=== PATIENT | female | born 1940 | race Caucasian/White ===

== ENCOUNTER → 2016-04-26 | Outpatient (CLI) | payer OTHER ==
--- NOTE | 2016-04-26 10:38 | DX ---
Right Shoulder, Three Views History: Fall onto shoulder yesterday. Comparison: Bilateral acromioclavicular joints with weights the same day. Findings: No fracture is identified. Alignment is normal. There is mild degenerative change of the gl enohumeral joint and moderate acromioclavicular arthrosis. The acromioclavicular and coracoclavicular relationships are normal. Granuloma is noted in the right upper lobe. Impressions 1. No acute osseous findings. 2. Mild-moderate degenerative change.
--- NOTE | 2016-04-26 10:41 | DX ---
Bilateral Acromioclavicular Joints With And Without Weights History: Fall with right shoulder pain. Comparison: Right shoulder same day at 0954 hours. Findings: No fracture is identified. The acromioclavicular and coracoclavicular relationships are nor mal with and without weights. Moderate right and mild left acromioclavicular arthrosis is present. Mi ld degenerative change is present at the glenohumeral joints. Right upper lobe granuloma is noted. Impression: No acute osseous findings.
== END ==
LOC: BMCIMAGING 09:53
PROVIDERS: ATTEND Family Medicine
DX: M25.511 Pain in right shoulder (principal)

== ENCOUNTER → 2017-05-22 | Outpatient (CLI) | payer OTHER | LOC: FIMAGING 09:07 | PROVIDERS: ATTEND Family Medicine | DX: Z12.31 Encounter for screening mammogram for malignant neoplasm of breast (principal) ==

== ENCOUNTER 2018-06-27 09:21 | Emergency (ER) | payer OTHER ==
--- NOTE | 2018-06-27 09:51 | EDPHY ---
General Time Seen by Provider: 06/27/18 09:33 Narrative: CLINICAL IMPRESSION: Left ureterolithiasis with left hydronephrosis, Acute renal insufficiency ASSESSMENT/PLAN: 77 yo female presents to the ER with 2-3 days of worsening left flank pain in the setting of microscopic hematuria x 4 months and urology f/u [address] tomorrow. She is afebrile, no reported hx of fevers and VSS. Abdomen soft without focal peritoneal findings. Labs show renal insufficiency with creatinine of 1.7, priors being 1.2 in 2017, 1.1 in 2016. Mild leukocytosis of 11. Urine studies pending. CT shows a large 9x9x13 mm left ureterolithiasis with moderate left hydronephrosis. I discussed pt's workup with her primary urologist, Dr. Coello at [facility] who will come to ER and plan to take the patient to the OR for stent placement today. Patient NPO since 6am and comfortable with this plan. Stable in ER prior to transfer to OR. DIFFERENTIAL DX: [Abdominal pain includes but not limited to urinary tract infection, pyelonephritis, infected ureterolithiasis or nephrolithiasis infection, acute diverticulitis, small-bowel obstruction, constipation, renal mass, renal artery aneurysm] [ED PROCEDURES:] [See lab and/or imaging results below ] ED COURSE: 9:45 a.m.: Patient seen assessed by myself. Vital signs stable. No acute distress, nontoxic-appearing. Plan for IV, fluid bolus, IV analgesic, labs, CT scan 10:20 a.m.: Labs reviewed by myself. Patient noted to have renal insufficiency with creatinine 1.7 today. Comparison show creatinine 1.2 in January 2018, 1.1 in January of 2017. Mild leukocytosis noted. CT results pending. 11:45 a.m.: CT results discussed Dr. Diaz. Patient has a 9 x 9 x 13 mm left ureteral stone approximately 8-9 cm upstream from the bladder with moderate left hydronephrosis. No evidence of malignancy. Page to [facility] were patient is an established patient. Discussed CT results with patient's urologist at [facility]. She will come to ER and plan to take patient to OR for stent placement tonight. Patient to go home in the morning. Urine studies pending. Patient comfortable with this plan and has been NPO since 6am. CHIEF COMPLAINT: [Left flank pain ] HPI: 77-year-old female with past medical history of kidney stones presents to the emergency department with 4 months of hematuria and approximately 3 days of progressively worsening left flank pain. Patient reports she saw her primary care doctor who detected the hematuria on a routine urine study. She then saw Dr. Kendrick 8 days ago who ordered a CT scan which is scheduled for tomorrow. Patient reports her pain was bad enough this morning that she became nauseous and vomited and decided to come to the ER. She does report a history of kidney stones 6 years ago requiring lithotripsy and stent placement. She has done well since that time. She reports no fever, chills, abdominal pain, dysuria, urgency. She was told in the past that she had abnormal renal function which was attributed to the use of naproxen. She also had a parathyroidectomy and renal functions improved. She has no reported chest pain, shortness of breath, lower extremity pain or loss of sensation or swelling. She tried taking hydrocodone this morning but vomited this. She reports she has diet-controlled diabetes but does not take medication for diabetes. She also has a history of hypertension PAST MEDICAL HISTORY: Hypertension, kidney stones, diet-controlled diabetes, melanoma [See nurse/triage notes for additional history if applicable ] Pertinent Past Surgical History: [ Parathyroidectomy, knee replacement] Family History: None reported Social History: , here with her REVIEW OF SYSTEMS: All other systems negative Constitutional: [No fever, no chills, positive for appetite change.] Cardiovascular: [No chest pain, no palpitations.] Respiratory: [No cough, no shortness of breath.] Gastrointestinal: [No abdominal pain, no vomiting, diarrhea.] Genitourinary: [No hematuria, dysuria, positive for left-sided flank pain, pelvic pain] Musculoskeletal: [No back pain, joint swelling, joint pain, myalgias.] Skin: [No rashes, color change.] Neurological: [No headache, dizziness, weakness.] PHYSICAL EXAM: General Appearance: [Alert, oriented, appropriate, cooperative, NAD, overweight well hydrated, non-toxic appearing, VSS, no hypoxia.] Respiratory: [There are no retractions, lungs are clear to auscultation.] Cardiac: [Regular rate and rhythm, no murmurs or gallops.] Gastrointestinal: [Abdomen is soft, nontender, bowel sounds normal, no masses/ hernia, no rigidity, guarding or focal peritoneal findings. Femoral pulses symmetric bilaterally] Neurological: [ Alert and oriented x 3, CN 2-12 grossly intact Skin: [Warm, dry, no rashes, no nodules on palpation.] Musculoskeletal: [Extremities are symmetrical, full range of motion, no tenderness, deformity, swelling, or erythema. Reproducible left flank pain to palpation] Psychiatric: [Patient is oriented X 3, there is no agitation.] MEDICAL DECISION MAKING: Patient was seen independently. Secondary supervising physician at time of evaluation was [ Dr. Biggs]. Diagnosis: Left ureterolithiasis, acute renal insufficiency New, requires workup Summary: [ See Assessment and Plan for summary of ED visit ] Clinical lab tests: [ ordered / reviewed]. Independent visualization of images, tracing, or specimens: [ Yes / No]. Discussed patient with another provider: [ [facility], radiology] Patient Progress: [ Stable for tranfer to OR with urology]. - Diagnostics Imaging Results: Imaging Impressions Abdomen/Pelvis CT 06/27/18 10:07 Impression: 1. Moderate left hydronephrosis due to 9 x 9 mm calculus in the distal left ureter at the level of the sacral promontory. 2. Bilateral nephrolithiasis. 3. No intra-abdominal mass or lymphadenopathy. 4. Constipation, diverticulosis, and benign left adrenal gland adenoma are unchanged. Findings discussed with Emergency Department physician, Prasad Markham PA-C on June 27, 2018 at 1045 hours. Attention: This CT examination is specifically designed to evaluate patients who are clinically suspected of having acute obstructive uropathy. This examination does not use radiographic contrast, and as such, provides only a limited evaluation of the abdomen, pelvis and retroperitoneum. If there is further clinical suspicion for pathological conditions other than obstructive uropathy, a complete CT evaluation of the abdomen and pelvis utilizing intravenous, oral, and rectal contrast should be considered. - History Smoking Status: Never smoked - Objective Vital Signs: Initial Vital Signs Temperature (C) 36.6 C 06/27/18 09:29 Heart Rate 65 06/27/18 09:29 Respiratory Rate 16 06/27/18 09:29 Blood Pressure 120/84 H 06/27/18 09:29 O2 Sat (%) 93 06/27/18 09:29 O2 Delivery Mode Room Air Allergies/Adverse Reactions: naproxen Allergy (Severe, Verified 06/27/18 09:28) KIDNEY DAMAGE penicillin G Allergy (Verified 06/27/18 09:28) Rash Home Medications: Medication Instructions Recorded Aspirin [Aspirin 81mg (*)] 81 mg PO DAILY 12/06/14 Atorvastatin Calcium [Lipitor 20 20 mg PO HS 12/06/14 mg (*)] FENOFIBRATE 160 mg PO DAILY 12/06/14 Herbals/Supplements -Info Only 1 ea PO DAILY 12/06/14 Lisinopril [Zestril 20 mg (*)] 20 mg PO DAILY 12/06/14 Metoprolol Succinate Xr [Toprol Xl 100 mg PO DAILY 12/06/14 100 mg (*)] Hydrocodone/APAP 5/325 [[place] 2 tab PO Q4 PRN #10 tab 12/08/14 5/325 (*)] Laboratory Results: Laboratory Results 06/27/18 09:47 06/27/18 09:47 06/27/18 06/27/18 06/27/18 12:30 09:47 09:47 WBC 11.50 10^3/uL H 10^3/uL (3.80-9.50) RBC 4.93 10^6/uL 10^6/uL (4.18-5.33) Hgb 15.2 g/dL g/dL (12.6-16.3) Hct 45.2 % % (38.0-47.0) MCV 91.7 fL fL (81.5-99.8) MCH 30.8 pg pg (27.9-34.1) MCHC 33.6 g/dL g/dL (32.4-36.7) RDW 13.5 % % (11.5-15.2) Plt Count 258 10^3/uL 10^3/uL (150-400) MPV 10.6 fL fL (8.7-11.7) Neut % (Auto) 71.8 % % (39.3-74.2) Lymph % (Auto) 16.6 % % (15.0-45.0) [place] % (Auto) 7.9 % % (4.5-13.0) Eos % (Auto) 3.1 % % (0.6-7.6) Baso % (Auto) 0.3 % % (0.3-1.7) Nucleat RBC Rel Count 0.0 % % (0.0-0.2) Absolute Neuts (auto) 8.24 10^3/uL H 10^3/uL (1.70-6.50) Absolute Lymphs (auto) 1.91 10^3/uL 10^3/uL (1.00-3.00) Absolute Monos (auto) 0.91 10^3/uL H 10^3/uL (0.30-0.80) Absolute Eos (auto) 0.36 10^3/uL 10^3/uL (0.03-0.40) Absolute Basos (auto) 0.04 10^3/uL 10^3/uL (0.02-0.10) Absolute Nucleated RBC 0.00 10^3/uL 10^3/uL (0-0.01) Immature Gran % 0.3 % % (0.0-1.1) Immature Gran # 0.04 10^3/uL 10^3/uL (0.00-0.10) Sodium 137 mEq/L mEq/L (135-145) Potassium 4.3 mEq/L mEq/L (3.5-5.2) Chloride 104 mEq/L mEq/L (97-110) Carbon Dioxide 22 mEq/l mEq/l (22-31) Anion Gap 11 mEq/L mEq/L (6-14) BUN 34 mg/dL H mg/dL (7-23) Creatinine 1.7 mg/dL H mg/dL (0.6-1.0) Estimated GFR 29 Glucose 117 mg/dL H mg/dL (70-100) Calcium 10.3 mg/dL mg/dL (8.5-10.4) Urine Color YELLOW Urine Appearance CLEAR Urine pH 5.0 (5.0-7.5) Ur Specific [place] 1.006 (1.002-1.030) Urine Protein NEGATIVE (NEGATIVE) Urine Ketones NEGATIVE (NEGATIVE) Urine Blood 2+ H (NEGATIVE) Urine Nitrate NEGATIVE (NEGATIVE) Urine Bilirubin NEGATIVE (NEGATIVE) Urine Urobilinogen 0.2 EU EU (0.2-1.0) Ur Leukocyte Esterase NEGATIVE (NEGATIVE) Urine RBC 25-50 /hpf H /hpf (0-3) Urine WBC 1-3 /hpf /hpf (0-3) Ur Epithelial Cells TRACE /lpf /lpf (NONE-1+) Urine Bacteria TRACE /hpf H /hpf (NONE SEEN) Urine Mucus TRACE /lpf /lpf (NONE-1+) Urine Glucose NEGATIVE (NEGATIVE) Medications Given: Discontinued Medications Fentanyl (Sublimaze) 50 mcg IVP EDNOW ONE Stop: 06/27/18 10:07 Last Admin: 06/27/18 10:34 Dose: 50 mcg Sodium Chloride (Ns) 1,000 mls @ 0 mls/hr IV EDNOW ONE; Wide Open PRN Reason: Protocol Stop: 06/27/18 10:07 Last Admin: 06/27/18 10:00 Dose: 1,000 mls Ondansetron HCl (Zofran) 4 mg IVP EDNOW ONE Stop: 06/27/18 10:08 Last Admin: 06/27/18 10:34 Dose: 4 mg Departure - Departure Disposition: To OP Cath/Surgery Clinical Impression: Kidney disease Referrals: Izabel Malik MD [Primary Care Provider] - As per Instructions
[2018-06-27 10:03] LABS: PLATELET COUNT 258 10^3/uL (150-400)
[2018-06-27] MEDS ORDERED: NS 1,000 ML IV ONE (10:06)
[2018-06-27] MEDS ORDERED: fentaNYL 100 MCG/2 ML INJ IVP ONE (10:06)
[2018-06-27] MEDS ORDERED: ONDANSETRON 4 MG/2 ML VIAL IVP ONE (10:07)
[2018-06-27] MEDS ORDERED: LIDOCAINE 2% JELLY 20 ML (UROJECT) ONE (12:50)
[2018-06-27] MEDS ORDERED: OPIUM/BELLADONNA ALKALO SUPP PR ONE (12:50)
[2018-06-27] MEDS ORDERED: IOPAMIDOL (ISOVUE-M 300) 15 ML VIAL ONE (12:56)
[2018-06-27] MEDS ORDERED: PROPOFOL 200 MG/20 ML VIAL ONE (13:18)
[2018-06-27] MEDS ORDERED: LIDOCAINE 2% 100 MG/5 ML SYR ONE (13:18)
[2018-06-27] MEDS ORDERED: PHENYLEPHRINE HCL 100 MCG/ML SYR ONE (13:18)
[2018-06-27] MEDS ORDERED: fentaNYL 100 MCG/2 ML INJ ONE (13:18)
[2018-06-27] MEDS ORDERED: DEXAMETHASONE 4 MG/ML VIAL ONE (13:18)
[2018-06-27] MEDS ORDERED: ONDANSETRON 4 MG/2 ML VIAL ONE (13:18)
[2018-06-27] MEDS ORDERED: levOFLOXACIN 500 MG/DEXTROSE 100 ML IV ONE (13:22)
[2018-06-27 17:16] VITALS: BP 141/77
--- NOTE | 2018-06-28 13:05 | GOP ---
[f rep st] OPERATIVE REPORT DATE OF OPERATION: 06/27/2018 SURGEON: Hoa Alvarado MD PREOPERATIVE DIAGNOSIS: Left flank pain and left left obstructing ureteral stone POSTOPERATIVE DIAGNOSIS: Left flank pain and left left obstructing ureteral stone PROCEDURE PERFORMED: Cystoscopy, left retrograde pyelogram, extraction of bladder stones, left ureteral stent placement. FINDINGS: Left distal ureteral stone. She also had 3 small bladder stones in her bladder. ANES: general Blood loss: minimal Complications: none INDICATIONS: The patient presented to the ER with left flank pain. CT scan obtained demonstrated a left distal ureteral stone with associated hydronephrosis and hydroureter. Due to severe snow weather conditions, we were unable to obtain a laser to the hospital. Recommend management with placement of a stent. I discussed the rationale, risks, and benefits, including bleeding , infection, pain, injury to the urethra in the bladder, the left ureter, inability to place the stent, need for percutaneous nephrostomy tube, and need for subsequent procedure. She understood these risks and agreed to proceed. DESCRIPTION OF PROCEDURE: She was taken back to the cystoscopy suite, placed on the cystoscopy table in supine position. General anesthesia induced without complication. Time-out performed. Core measures satisfied, including placement of a Simba Hugger, SCDs, and administration of Levaquin antibiotics. She was brought to the end of the table, placed in the dorsal lithotomy position. All pressure points padded. Genitalia draped and prepped in the standard surgical fashion with Betadine. Rigid cystoscope easily cannulated the urethral meatus and was advanced atraumatically into the bladder. Hayden cystoscopy was performed. There were 3 small bladder stones. I used a flexible grasper and grasped each of these stones and externalized them and sent them to Pathology. I looked around the whole bladder. There were no lesions, cellules, trabeculations, or masses. The left ureteral orifice was hard to find as she had a very large cystocele, but I was able to find it, cannulated it with a 5-Nepali open-end catheter, performed a retrograde pyelogram, and I made sure that the stone that was seen on the CT scan was still present given I just extracted the stones out of her bladder, and it was. There was a clear filling defect in the left distal ureter , and there was very little contrast was able to get passed this stone as the stone was about 1.3 cm x 9 mm. So after retrograde, then I was able to pass a wire up in the left collecting system and then passed a 6-Nepali multivariable with some resistance at the level of the stone, but eventually it passed across and was able to place a nice stent with a nice curl in left renal pelvis, a nice curl in the bladder. Her bladder was then emptied. At this point, the procedure was considered complete. She was awoken from anesthesia and transferred to PACU in good condition. Specimens: Bladder stones /[id number]/MODL MTDD
== END 2018-06-27 12:45 | disposition still patient (30) ==
DX: N28.9 Disorder of kidney and ureter, unspecified (principal); N13.30 Unspecified hydronephrosis; N20.0 Calculus of kidney
CPT/HCPCS: 74176; 76000; 88300; 96374; 96375; 99285; J1100; J2001; J2370; J2405; J2704; J3010; Q9967; 82365-90

== ENCOUNTER → 2018-07-12 | Outpatient (CLI) | payer OTHER | LOC: EDSTATUS 15:50 → FIMAGING 15:51 | PROVIDERS: ATTEND Family Medicine | DX: Z12.31 Encounter for screening mammogram for malignant neoplasm of breast (principal) | CPT/HCPCS: C1758; C1769; C2625 ==